=== PATIENT | female | born 1995 | race African-American/Black ===

== ENCOUNTER 2017-01-08 19:45 | Emergency (ER) | payer OTHER ==
[2017-01-08 20:21] LABS: BASOPHILS % 0.3 (0.0-1.5); EOSINOPHILS % 1.6 % (0.0-6.8); MEAN CORPUSCULAR HEMOGLOBIN 28.2 pg (28.0-34.0); MEAN CORPUSCULAR VOLUME 85.3 fl (80.0-100.0); MONOCYTES % 4.7 % (0.0-11.0); NEUTROPHILS # 5.3 # k/uL (1.4-7.7)
[2017-01-08 20:27] LABS: eGFR (African) > 60; eGFR (Non-African) > 60
[2017-01-08] MEDS ORDERED: AZITHROMYCIN 1 GM PACKET PO ONE (20:35)
[2017-01-08] MEDS ORDERED: Lidocaine 1% 5ml(IM or SUTURE)(PAIN CLINIC) IJ ONE (20:36)
--- NOTE | 2017-01-08 20:52 | ED Physician Documentation ---
General Adult - HISTORIAN Historian: patient - HPI Stated Complaint: ABD PAIN, RECTAL BLEEDING, STD Chief Complaint: General Adult Onset: other (3 months ago) Further Comments: yes (21 year old female patient presents with complaints of rectal bleeding intermittently for the past 3 months. Patient states 3 months ago, she had bleeding through her pants at work. Patient also reports abdominal cramping and discomfort for the past 4 weeks, states she just started her period, reports stopping the depo provera shot 3 months ago. Patient reports unprotected sex with a partner that now has been diagnosed with Chlamydia. Patient has not seen PCP regarding any of her complaints.) - ROS CONST: no problems EYES/ENT: none CVS/RESP: none GI/: none MS/SKIN/LYMPH: none NEURO/PSYCH: denies: headache - PAST HX Past History: none Other History: other (bipolar) Allergies/Adverse Reactions: Allergies Allergy/AdvReac Type Severity Reaction Status Date / Time No Known Allergies Allergy Verified 01/06/16 09:48 Home Medications: Ambulatory Orders Medication Instructions Recorded NK [NK] 01/08/17 - SOCIAL HX Smoking History: cigarettes - FAMILY HX Family History: No - VITAL SIGNS Vital Signs: Vital Signs Temp Pulse Resp BP Pulse Ox 98.2 F 70 16 142/62 99 01/08/17 20:00 01/08/17 20:00 01/08/17 20:00 01/08/17 20:00 01/08/17 20:00 - REVIEWED ASSESSMENTS Nursing Assessment Reviewed: Yes Vitals Reviewed: Yes Progress - Progress Progress: Reviewed lab results with patient. Educated on possible causes of rectal bleeding including anal fissures, hemorrhoids, anal sex and anal toys. Patient denies any of the mentioned causes, denies constipation, pain with BM or rectal bleeding with BM. Patient refused rectal exam, does not want vaginal exam because she is on her period. Patient denies vaginal discharge or odor. Reviewed Discharge instructions. Treated for gonorrhea and chlamydia in the [facility]. ED Results Lab/Radiology - Lab Results Lab Results: Lab Results 01/08/17 01/08/17 20:06 20:06 WBC 8.80 K/ul K/ul (4.00-12.00) RBC 4.82 M/ul M/ul (3.90-5.20) Hgb 13.6 g/dL g/dL (12.0-16.0) Hct 41.2 % % (34.5-46.5) MCV 85.3 fl fl (80.0-100.0) MCH 28.2 pg pg (28.0-34.0) MCHC 33.1 g/dL g/dL (30.0-36.0) RDW 12.6 % % (11.3-14.3) Plt Count 244 K/mm3 K/mm3 (130-400) Neut % (Auto) 60.5 % % (39.0-79.0) Lymph % (Auto) 31.1 % % (16.0-50.0) [place] % (Auto) 4.7 % % (0.0-11.0) Eos % (Auto) 1.6 % % (0.0-6.8) Baso % (Auto) 0.3 (0.0-1.5) Neut # 5.3 # k/uL # k/uL (1.4-7.7) Lymph # 2.7 # k/uL # k/uL (0.6-4.0) [place] # 0.4 # k/uL # k/uL (0.0-0.9) Eos # 0.1 # k/uL # k/uL (0.0-0.6) Baso # 0.0 # k/uL # k/uL (0.0-0.5) Reactive Lymphs % 1.7 % % (0.0-5.0) Reactive Lymphs # 0.2 # k/uL # k/uL (0.0-0.8) Sodium 139 mmol/L mmol/L (136-145) Potassium 3.9 mmol/L mmol/L (3.5-5.0) Chloride 107 mmol/L mmol/L (98-110) Carbon Dioxide 31 mmol/L mmol/L (20-32) BUN 10 mg/dL mg/dL (10-26) Creatinine 0.6 mg/dL mg/dL (0.4-1.5) Estimated Creat Clear 235 Est GFR ( Amer) > 60 (60 - ) Est GFR (Non-Af Amer) > 60 (60 - ) Glucose 87 mg/dL mg/dL (70-99) Calcium 9.9 mg/dL mg/dL (8.5-10.5) Total Bilirubin 0.2 mg/dL mg/dL (0.2-1.2) AST 17 U/L U/L (0-41) ALT 14 U/L U/L (0-45) Alkaline Phosphatase 72 U/L U/L (46-116) Total Protein 7.1 g/dL g/dL (6.0-8.5) Albumin 4.7 g/dL g/dL (3.0-5.5) - Orders Orders: ED Orders Category Date Time Status CBC/PLATELET/DIFF Stat Lab 01/08/17 20:06 Completed CHLAMYDIA & GONORRHOEAE Urgent Lab 01/08/17 20:06 Received CMP Stat Lab 01/08/17 20:06 Completed Azithromycin [Zithromax] Med 01/08/17 20:35 Discontinued 1 gm PO NOW ONE Lidocaine 1% 5ml(IM or SUTURE) [Xylocaine] Med 01/08/17 20:36 Discontinued 50 mg IJ NOW ONE cefTRIAXone SODIUM [Rocephin] Med 01/08/17 20:35 Discontinued 125 mg IM NOW ONE General Adult Physical Exam - PHYSICAL EXAM GENERAL APPEARANCE: [id number] N EENT: eye inspection normal, PREETHI RESPIRATORY: no resp distress, chest non-tender, breath sounds normal CVS: reg rate & rhythm, heart sounds normal, equal pulses, no murmur, no gallop , PMI nml, no JVD, no friction rub, 24 ABDOMEN: soft, no organomegaly, normal bowel sounds, no abdominal bruit, no distension, tenderness (LLQ mid tenderness with deep palpation. ) BACK: No: no CVA tenderness, CVA tenderness (R) SKIN: normal color, warm/dry, NR, INT, PAL, DR EXTREMITIES: non-tender, normal range of motion, no evidence of injury, no edema , J, [employer] NEURO: oriented X3, CN's nml as tested, motor nml, sensation nml, mood/affect nml Discharge Clincal Impression: STD (sexually transmitted disease) Additional Instructions: You have been treated for gonorrhea and chlamydia tonight. If your tests are positive you will be notified. Follow up with your primary care doctor this week if your symptoms do not resolve Home Medications: Ambulatory Orders NK [NK] 01/08/17 Condition: Stable Disposition: 01 HOME, SELF-CARE Decision to Admit: NO Decision Time: 20:57
[2017-01-08 21:55] VITALS: BP 136/74
== END 2017-01-08 21:05 | disposition home or self-care (01) ==
LOC: ED 19:45
DX: A64 Unspecified sexually transmitted disease (principal)
CPT/HCPCS: 80053; 85025; 87801; J0456; J0696; 96372; 99283

== ENCOUNTER 2017-09-10 10:02 | Emergency (ER) | payer SELFPAY ==
--- NOTE | 2017-09-10 10:05 | ED Physician Documentation ---
General Adult - HISTORIAN Historian: patient - HPI Stated Complaint: Left ear pain Chief Complaint: Earache Onset: hours (5) Timing: worse Severity: moderate Further Comments: yes (She states for a few days she has had increased congestion and nasal drainge. This am she notes a severe sore left ear and saw blood on her pillow (small amount) she is crying and yelling in pain. she has not tried any OTC meds. Denies a fever. No sore throat No injury to the ear) Last known Well Code/Unknown Code: Unknown - ROS CONST: denies: fever, recent illness EYES/ENT: nasal drainage, nasal congestion. denies: sore throat CVS/RESP: denies: shortness of breath, cough GI/: none NEURO/PSYCH: denies: headache - PAST HX Past History: none Other History: none Surgeries/Procedures: none Immunizations: UTD Allergies/Adverse Reactions: Allergies Allergy/AdvReac Type Severity Reaction Status Date / Time No Known Allergies Allergy Verified 09/10/17 10:20 Home Medications: Ambulatory Orders Medication Instructions Recorded NK [NK] 01/08/17 - SOCIAL HX Smoking History: non-smoker Alcohol Use: none Drug Use: none - FAMILY HX Family History: No - VITAL SIGNS Vital Signs: Vital Signs Temp Pulse Resp BP Pulse Ox 136/74 01/08/17 21:05 - REVIEWED ASSESSMENTS Nursing Assessment Reviewed: Yes Vitals Reviewed: Yes General Adult Physical Exam - PHYSICAL EXAM GENERAL APPEARANCE: mild distress EENT: other (left ear canal with redness and swelling. She would not allow any further exam ) RESPIRATORY: no resp distress, breath sounds normal CVS: reg rate & rhythm, heart sounds normal, equal pulses, no murmur ABDOMEN: soft, no organomegaly, normal bowel sounds SKIN: warm/dry, normal color EXTREMITIES: non-tender NEURO: oriented X3, CN's nml as tested, motor nml, sensation nml Discharge Clincal Impression: Otitis Qualifiers: Laterality: left Qualified Code(s): H66.92 - Otitis media, unspecified, left ear Referrals: Primary Doctor,No [Primary Care Provider] - 2 Days Additional Instructions: Augmentin 875/125 BID x 10 Medrol dose pack As directed Warm pack to ear OTC meds for pain DG Condition: Stable Disposition: 01 HOME, SELF-CARE Decision to Admit: NO Date of Decison to Admit: 09/10/17 Decision Time: 10:16
[2017-09-10] MEDS ORDERED: IBUPROFEN 200 MG TABLET PO ONE (10:12)
[2017-09-10 10:13] VITALS: BP 135/87
== END 2017-09-10 10:26 | disposition home or self-care (01) ==
LOC: ED 10:02
DX: H66.92 Otitis media, unspecified, left ear (principal)
CPT/HCPCS: 99283